=== PATIENT | male | born 1960 | race Caucasian/White ===

== ENCOUNTER 2018-07-19 20:22 | Emergency (ER) | payer OTHER ==
[~2018-07-19] VITALS: Ht 160 cm; Wt 86.4 kg
[2018-07-19 20:26] VITALS: Ht 160 cm; Wt 86.4 kg
[2018-07-19] MEDS ORDERED: ASPIRIN 81 MG TAB PO STA (21:39)
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
[2018-07-19 23:20] VITALS: BP 154/85; PULSE 66; RESP 18
== END 2018-07-19 23:20 | disposition home or self-care (01) ==
LOC: E/R 20:22
DX: R07.2 Precordial pain (principal); I25.10 Atherosclerotic heart disease of native coronary artery without angina pectoris; I10 Essential (primary) hypertension; Z87.891 Personal history of nicotine dependence; Z95.1 Presence of aortocoronary bypass graft
CPT/HCPCS: 71045; 80048; 84484; 85025; 93005; Z7502; Z7610